=== PATIENT | male | born 1945 | race Caucasian/White ===

== ENCOUNTER 2017-03-22 01:49 | Emergency (ER) | payer OTHER ==
[~2017-03-22] VITALS: Ht 160 cm; Wt 63.3 kg
[~2017-03-22 01:49] MED LIST: ACET325T33 PO; ASPI325T32 PO; CAPS60CR2 TOP; INSU100I13 SC; INSU100V18 SC; LOSA50TA6 PO; NAPR-688 PO; PANT40TA4 PO; PENT400T2 PO; POTA20TA8 PO; TERA1CAP36 PO; ZOLP10TA PO
[2017-03-22 01:52] VITALS: Ht 160 cm; Wt 63.3 kg
[2017-03-22] MEDS ORDERED: SOD CHLORIDE 0.9% 500 ML IV STA (01:57)
[2017-03-22 02:20] LABS: BASOPHILS % 0.3 % (0.0-2.0); EOSINOPHILS % 0.3 % (0.0-7.0); HEMATOCRIT 37.6 % (42.0-52.0); HEMOGLOBIN 13.3 g/dl (14.0-18.0); LYMPHOCYTES # 0.7 10^3/ul (0.8-2.9); LYMPHOCYTES % 12.3 % (15.0-51.0); MEAN CORPUSCULAR HEMOGLOBIN 33.3 pg (29.0-33.0); MEAN CORPUSCULAR HGB CONC 35.4 g/dl (32.0-37.0); MEAN CORPUSCULAR VOLUME 94.2 fl (82.0-101.0); MONOCYTE # 0.5 10^3/ul (0.3-0.9); MONOCYTES % 8.4 % (0.0-11.0); NEUTROPHIL # 4.6 10^3/ul (1.6-7.5); PLATELET COUNT 127 10^3/UL (140-415); POSITIVE DIFF @See below; RED BLOOD COUNT 3.99 10^6/ul (4.70-6.10); WHITE BLOOD COUNT 5.9 10^3/ul (4.8-10.8)
[2017-03-22 02:34] LABS: INR 0.99; PROTIME 13.1 Sec (12.2-14.2)
[2017-03-22 02:35] LABS: PARTIAL THROMBOPLASTIN TIME 28.8 Sec (25.0-35.0)
[2017-03-22 02:42] LABS: ALBUMIN 3.9 g/dl (3.3-4.9); ALBUMIN/GLOBULIN RATIO 1.11; BILIRUBIN,INDIRECT 0.2 mg/dl (0-1.1); BILIRUBIN,TOTAL 0.2 mg/dl (0.2-1.3); CALCIUM 8.8 mg/dl (8.4-10.2); CREATININE 0.75 mg/dl (0.61-1.24); POTASSIUM 4.3 mmol/L (3.5-5.1); TOTAL PROTEIN 7.4 g/dl (6.1-8.1)
--- NOTE | 2017-03-22 02:43 | RADRPT ---
PROCEDURE: CHEST - 1 VIEW CLINICAL INDICATION: 72-year-old male with chest pain. TECHNIQUE: A single frontal AP upright portable view of the chest was performed. The images were reviewed on a PACS workstation. COMPARISON: Chest x-ray March 11, 2014. FINDINGS: The cardiomediastinal silhouette is within normal limits. The thoracic aortic arch is calcified. T here is no evidence for an infiltrate. There is no evidence for congestive heart failure. There is no evidence for pneumothorax. Surgical clips are seen within the right upper quadrant from prior cho lecystectomy. The osseous structures are intact. IMPRESSION: 1. No evidence for active cardiopulmonary disease. 2. Calcified thoracic aortic arch. 3. Status post cholecystectomy. .Jan Rodriguez MD, MD Date Time Electronically viewed and signed by .Jan Rodriguez MD, on 03/22/2017 02:43 .M/
[2017-03-22 02:54] LABS: TROPONIN-I 0.013 ng/ml (0.00-0.12)
[2017-03-22] MEDS ORDERED: hydrALAzine 20 MG INJ IV ONE (03:00)
--- NOTE | 2017-03-22 03:12 | ERD ---
ER Documentation Chief Complaint Date/Time DATE: 03/22/17 TIME: 03:09 Chief Complaint hypoglycemia HPI 72-year-old male here for hypoglycemia. Patient history of diabetes mellitus. Denies any fevers or chills. Found to have sugar 47 at home. Given D10 in the field. Alert and oriented 4 with no complaints upon arrival to ER. ROS All systems reviewed and are negative except as per history of present illness. Medications Home Meds Active Scripts Acetaminophen* (Tylenol*) 325 Mg Tablet, 2 TAB PO Q8 Y for PAIN, #20 TAB Prov:LUIS DOBSON MD 03/10/16 Reported Medications Pentoxifylline* (Pentoxifylline*) 400 Mg Tablet.sa, 400 MG PO BID, TAB 03/10/16 Terazosin Hcl* (Terazosin Hcl*) 1 Mg Capsule, 1 MG PO QPM, CAP 03/10/16 Pantoprazole* (Pantoprazole*) 40 Mg Tablet.dr, 40 MG PO DAILY, TAB 03/10/16 Insuln Asp Prt/Insulin Aspart (Novolog Mix 70-30 Vial*) 100 Units/Ml Vial, 20 UNIT SC QPM, VIAL 03/10/16 Insuln Asp Prt/Insulin Aspart* (Novolog Mix 70-30 Flexpen*) 100 Units/Ml Pen, 30 UNIT SC AC BREAKFAST, EA 03/10/16 Naproxen* (Naproxen*) 500 Mg Tablet, 500 MG PO BID Y for PAIN, TAB 03/10/16 Losartan Potassium* (Losartan Potassium*) 50 Mg Tablet, 50 MG PO DAILY, TAB 03/10/16 Potassium Chloride* (Klor-Con*) 10 Meq Tabsr, 10 MEQ PO DAILY Y for MUSCLE CRAMPS, TAB.SA 03/10/16 Capsaicin* (Capsaicin*) 0.025%-45GM Cream..g., 1 APPLIC TOP BID, #1 EA 03/10/16 Aspirin* (Aspirin* EC) 325 Mg Tab, 325 MG PO DAILY, TAB 03/10/16 Zolpidem Tartrate* (Ambien*) 10 Mg Tablet, 10 MG PO QHS Y for INSOMNIA, TAB 03/10/16 Allergies Allergies: Coded Allergies: No Known Allergies (Verified Allergy, Mild, 03/19/12) PMhx/Soc History of Surgery: Yes (spine sx) Anesthesia Reaction: No Hx Neurological Disorder: No Hx Respiratory Disorders: No Hx Cardiac Disorders: Yes (HTN) Hx Psychiatric Problems: No Hx Miscellaneous Medical Probl: Yes (DM) Hx Alcohol Use: No Hx Substance Use: No Hx Tobacco Use: No Smoking Status: Never smoker Physical Exam Vitals Vital Signs Date Time Temp Pulse Resp B/P Pulse Ox O2 Delivery O2 Flow Rate FiO2 03/22/17 01:52 96.8 69 14 199/103 100 Physical Exam Const: [] Head: Atraumatic Eyes: Normal Conjunctiva ENT: Normal External Ears, Nose and Mouth. Neck: Full range of motion..~ No meningismus. Resp: Clear to auscultation bilaterally Cardio: Regular rate and rhythm, no murmurs Abd: Soft, non tender, non distended. Normal bowel sounds Skin: No petechiae or rashes Back: No midline or flank tenderness Ext: No cyanosis, or edema Neur: Awake and alert Psych: Normal Mood and Affect Result Diagram: 03/22/17 0200 03/22/17 0200 Results 24 hrs Laboratory Tests Test 03/22/17 02:00 03/22/17 02:01 White Blood Count 5.910^3/ul Red Blood Count 3.9910^6/ul Hemoglobin 13.3g/dl Hematocrit 37.6% Mean Corpuscular Volume 94.2fl Mean Corpuscular Hemoglobin 33.3pg Mean Corpuscular Hemoglobin Concent 35.4g/dl Red Cell Distribution Width 13.0% Platelet Count 01399^3/UL Mean Platelet Volume 10.0fl Neutrophils % 78.0% Lymphocytes % 12.3% Monocytes % 8.4% Eosinophils % 0.3% Basophils % 0.3% Nucleated Red Blood Cells % 0.0/100WBC Neutrophils # 4.610^3/ul Lymphocytes # 0.710^3/ul Monocytes # 0.510^3/ul Eosinophils # 0.010^3/ul Basophils # 0.010^3/ul Nucleated Red Blood Cells # 0.010^3/ul Prothrombin Time 13.1Sec Prothrombin Time Ratio 1.0 INR International Normalized Ratio 0.99 Activated Partial Thromboplast Time 28.8Sec Sodium Level 144mmol/L Potassium Level 4.3mmol/L Chloride Level 102mmol/L Carbon Dioxide Level 26mmol/L Anion Gap 20 Blood Urea Nitrogen 16mg/dl Creatinine 0.75mg/dl Glucose Level 159mg/dl Calcium Level 8.8mg/dl Total Bilirubin 0.2mg/dl Direct Bilirubin 0.00mg/dl Indirect Bilirubin 0.2mg/dl Aspartate Amino Transf (AST/SGOT) 149IU/L Alanine Aminotransferase (ALT/SGPT) 182IU/L Alkaline Phosphatase 66IU/L Troponin I 0.013ng/ml B-Type Natriuretic Peptide 320PG/ML Total Protein 7.4g/dl Albumin 3.9g/dl Globulin 3.50g/dl Albumin/Globulin Ratio 1.11 Bedside Glucose 161mg/dL Current Medications Medications (Trade) Dose Ordered Sig/Smiley Route PRN Reason Start Time Stop Time Status Last Admin Dose Admin Sodium Chloride (NS) 500 ml @ 500 mls/hr Q1H STAT IV 03/22/17 01:57 03/22/17 02:56 DC 03/22/17 02:14 Hydralazine HCl (Apresoline) 20 mg ONCE ONCE IV 03/22/17 03:00 03/22/17 03:01 DC 03/22/17 03:05 Procedures/MDM EKG: Rate/Rhythm: Normal Sinus Rhythm QRS, ST, T-waves: No changes consistent w/ acute ischemia Impression: No evidence of ischemia or arrhythmia Chest X-ray 1V Interpreted by me: Soft Tissue: No acute abnormalities Bones: No acute abnormalities Mediastinum/Cardiac Silhouette/Lungs: No acute abnormalities Patient's blood pressure was elevated (>120/80) but appears stable without evidence of hypertension emergency or urgency. The patient was counseled about the risks of hypertension and urged to pursue outpatient monitoring and therapy within a week with their primary care physician. Patient's hypoglycemia has resolved. At this point clinically stable. Will be discharged home Departure Diagnosis: Primary Impression: Hypoglycemia Additional Impression: Accelerated hypertension Condition: Stable SHANTHI LYNN Mar 22, 2017 03:12
[2017-03-22 03:28] VITALS: BP 137/77; PULSE 72; RESP 18; TEMP 98.6
== END 2017-03-22 03:32 | disposition home or self-care (01) ==
LOC: E/R 01:49
DX: E11.649 Type 2 diabetes mellitus with hypoglycemia without coma (principal); I10 Essential (primary) hypertension; R07.9 Chest pain, unspecified; Z79.4 Long term (current) use of insulin; Z79.82 Long term (current) use of aspirin
CPT/HCPCS: 36415; 71010; 80053; 82962; 83880; 84484; 85025; 85610; 85730; 93005; 96374; 99285; J0360; J7040

== ENCOUNTER 2017-04-12 04:54 | Inpatient (IN) | payer OTHER ==
[~2017-04-12] VITALS: Ht 160 cm; Wt 58.0 kg
[2017-04-12 04:57] VITALS: Ht 160 cm; Wt 58.0 kg
[2017-04-12] MEDS ORDERED: hydrALAzine 20 MG INJ IV ONE (05:30)
--- NOTE | 2017-04-12 05:40 | RADRPT ---
PROCEDURE: XR Chest. CLINICAL INDICATION: Altered mental status. Pulmonary process not otherwise specified. TECHNIQUE: Portable single view of the chest COMPARISON: 03/22/2017 FINDINGS: The heart size remains within normal limits. The aorta is slightly ectatic and calcified. No acute infiltrate, pleural effusion, or overt congestive heart failure is seen. No bony abnormality is se en. IMPRESSION: Atherosclerotic aorta. No definite acute pulmonary disease. RPTAT: HLBE Monique Simmons Physician Date Time Electronically viewed and signed by Monique Simmons, Physician on 04/12/2017 05:39 LE/
[2017-04-12 06:06] LABS: BASOPHILS % 0.5 % (0.0-2.0); EOSINOPHILS # 0.1 10^3/ul (0.0-0.5); EOSINOPHILS % 1.2 % (0.0-7.0); HEMATOCRIT 39.3 % (42.0-52.0); HEMOGLOBIN 13.4 g/dl (14.0-18.0); LYMPHOCYTES # 1.6 10^3/ul (0.8-2.9); LYMPHOCYTES % 26.8 % (15.0-51.0); MEAN CORPUSCULAR HEMOGLOBIN 32.1 pg (29.0-33.0); MEAN CORPUSCULAR HGB CONC 34.1 g/dl (32.0-37.0); MEAN CORPUSCULAR VOLUME 94.2 fl (82.0-101.0); MEAN PLATELET VOLUME 10.6 fl (7.4-10.4); MONOCYTE # 0.5 10^3/ul (0.3-0.9); MONOCYTES % 8.9 % (0.0-11.0); NEUTROPHILS % 62.4 % (39.0-77.0); PLATELET COUNT 139 10^3/UL (140-415); POSITIVE DIFF @See below; RED BLOOD COUNT 4.17 10^6/ul (4.70-6.10)
--- NOTE | 2017-04-12 06:16 | RADRPT ---
PROCEDURE: CT Brain without. CLINICAL INDICATION: Altered mental status TECHNIQUE: A CT of the brain was performed utilizing axial sections from the skull base through th e vertex without contrast. The scan was reviewed in soft tissue brain and high frequency resolution bone algorithm windows. Images were reviewed on a high-resolution PACS workstation. The exam CTDI = 43.86 mGy, and the DLP = 720.23 mGy-cm. One or more of the following dose reduction techniques we re used: Automated exposure control, adjustment of the mA and / or kV according to patient size, or use of iterative reconstruction technique. COMPARISON: Head CT dated 03/19/2012 FINDINGS: There is mild prominence of the lateral ventricles and cerebral sulci, consistent with diffuse cereb ral atrophy. There is no intracranial hemorrhage, midline shift, or mass effect. No abnormal extra- axial fluid collections are identified. There is hypoattenuation of the periventricular white matte r. There is focal hypoattenuation within the left thalamus and left norris radiata The mendoza-white di fferentiation is well preserved. The basal cisterns are patent. The posterior fossa is unremarkabl e. Vascular calcifications are noted within the intracranial portions of the vertebral and internal carotid arteries. The visualized portions of the orbits are unremarkable. The paranasal sinuses and mastoid air cells are clear. No calvarial fracture is identified. There is a nonspecific nonaggressive appearing rou nd sclerotic focus along the left superior orbital wall, not significantly changed when compared to the prior examination. The soft tissues are unremarkable. IMPRESSION: 1. No acute intracranial abnormality. No significant interval change. 2. Chronic left thalamic/norris radiata infarct. 3. Age related senescent changes with mild diffuse cerebral atrophy. 4. Patchy periventricular hypoattenuation, nonspecific finding, most commonly associated with micro vascular ischemic changes. 5. Arterial atherosclerosis. RPTAT: HH .Susana Whittington MD, Date Time Electronically viewed and signed by .Susana Whittington MD, on 04/12/2017 06:16 .G/
[2017-04-12 06:39] LABS: ADD UMIC YES; UR ASCORBIC ACID NEGATIVE (NEGATIVE); UR BILIRUBIN (Dip) NEGATIVE (NEGATIVE); UR BLOOD (Dip) NEGATIVE (NEGATIVE); UR CLARITY CLEAR (CLEAR); UR COLOR YELLOW (YELLOW); UR GLUCOSE (Dip) 1+ mg/dL (NEGATIVE); UR KETONES (Dip) NEGATIVE (NEGATIVE); UR LEUKOCYTE ESTERASE (Dip) NEGATIVE Leu/ul (NEGATIVE); UR NITRITE (Dip) NEGATIVE (NEGATIVE); UR RBC 1 /HPF (0-5); UR SPECIFIC GRAVITY (Dip) 1.013 (1.003-1.030); UR TOTAL PROTEIN (Dip) 2+ mg/dl (NEGATIVE); UR UROBILINOGEN (Dip) 1+ mg/dL (NEGATIVE)
[2017-04-12] MEDS ORDERED: DEXTROSE 50% 50 ML SYRINGE IV STA (06:55)
[2017-04-12] MEDS ORDERED: DEXTROSE 50% 50 ML SYRINGE ONE (06:55)
[2017-04-12] MEDS ORDERED: ASPIRIN 325 MG TAB PO ONE (07:00)
[2017-04-12 07:24] LABS: BARBITURATES Negative (NEGATIVE); BENZODIAZEPINES Negative (NEGATIVE); CANNABINOIDS Negative (NEGATIVE); COCAINE Negative (NEGATIVE); OPIATES Negative (NEGATIVE)
[2017-04-12 08:00] VITALS: TEMP 97.9
[2017-04-12 08:01] LABS: ALANINE AMINOTRANSFERASE 200 IU/L (13-69); ALBUMIN 3.6 g/dl (3.3-4.9); ALBUMIN/GLOBULIN RATIO 0.92; ALKALINE PHOSPHATASE 75 IU/L (42-121); ANION GAP 20 (8-16); ASPARTATE AMINO TRANSFERASE 143 IU/L (15-46); BILIRUBIN,INDIRECT 0.3 mg/dl (0-1.1); BILIRUBIN,TOTAL 0.3 mg/dl (0.2-1.3); BLOOD UREA NITROGEN 17 mg/dl (7-20); CALCIUM 8.8 mg/dl (8.4-10.2); CARBON DIOXIDE 25 mmol/L (21-31); CHLORIDE 99 mmol/L (97-110); CREATININE 0.69 mg/dl (0.61-1.24); GLUCOSE 213 mg/dl (70-220); POTASSIUM 4.6 mmol/L (3.5-5.1); SODIUM 139 mmol/L (135-144); TOTAL PROTEIN 7.5 g/dl (6.1-8.1)
--- NOTE | 2017-04-12 08:09 | ERA ---
ER Documentation Chief Complaint Date/Time DATE: 04/12/17 TIME: 08:06 Chief Complaint BIBA RA81, ALOC HPI Patient is a 72-year-old male with hypertension and diabetes who presents with altered mental status. Please note the history and physical exam is limited secondary to the patient's altered mental status. He was brought in by ambulance. He is confused and does not know the year. He has decreased glassblower strength on the right. It is difficult to obtain history otherwise. The patient has had previous visits for hypoglycemia based on review of old medical records. He does not know the name of his primary doctor. ROS All systems reviewed and are negative except as per history of present illness. Medications Home Meds Active Scripts Acetaminophen* (Tylenol*) 325 Mg Tablet, 2 TAB PO Q8 Y for PAIN, #20 TAB Prov:LUIS DOBSON MD 03/10/16 Reported Medications Pentoxifylline* (Pentoxifylline*) 400 Mg Tablet.sa, 400 MG PO BID, TAB 03/10/16 Terazosin Hcl* (Terazosin Hcl*) 1 Mg Capsule, 1 MG PO QPM, CAP 03/10/16 Pantoprazole* (Pantoprazole*) 40 Mg Tablet.dr, 40 MG PO DAILY, TAB 03/10/16 Insuln Asp Prt/Insulin Aspart (Novolog Mix 70-30 Vial*) 100 Units/Ml Vial, 20 UNIT SC QPM, VIAL 03/10/16 Insuln Asp Prt/Insulin Aspart* (Novolog Mix 70-30 Flexpen*) 100 Units/Ml Pen, 30 UNIT SC AC BREAKFAST, EA 03/10/16 Naproxen* (Naproxen*) 500 Mg Tablet, 500 MG PO BID Y for PAIN, TAB 03/10/16 Losartan Potassium* (Losartan Potassium*) 50 Mg Tablet, 50 MG PO DAILY, TAB 03/10/16 Potassium Chloride* (Klor-Con*) 10 Meq Tabsr, 10 MEQ PO DAILY Y for MUSCLE CRAMPS, TAB.SA 03/10/16 Capsaicin* (Capsaicin*) 0.025%-45GM Cream..g., 1 APPLIC TOP BID, #1 EA 03/10/16 Aspirin* (Aspirin* EC) 325 Mg Tab, 325 MG PO DAILY, TAB 03/10/16 Zolpidem Tartrate* (Ambien*) 10 Mg Tablet, 10 MG PO QHS Y for INSOMNIA, TAB 03/10/16 Allergies Allergies: Coded Allergies: No Known Allergies (Verified Allergy, Mild, 03/19/12) PMhx/Soc History of Surgery: Yes (spine sx, R FOOT AMPUTATION) Anesthesia Reaction: No Hx Neurological Disorder: Yes (CVA) Hx Respiratory Disorders: No Hx Cardiac Disorders: Yes (HTN) Hx Psychiatric Problems: No Hx Miscellaneous Medical Probl: Yes (DM) Hx Alcohol Use: No Hx Substance Use: No Hx Tobacco Use: No Smoking Status: Unknown if ever smoked FmHx Family History: No diabetes Physical Exam Vitals Vital Signs Date Time Temp Pulse Resp B/P Pulse Ox O2 Delivery O2 Flow Rate FiO2 04/12/17 06:46 70 16 143/77 99 Nasal Cannula 2.0 04/12/17 06:20 69 16 226/120 99 Nasal Cannula 2.0 04/12/17 05:05 Nasal Cannula 2 04/12/17 05:05 97.6 68 12 231/114 99 Nasal Cannula 2.0 04/12/17 04:57 97.6 73 18 232/106 100 Physical Exam Const: No acute distress Head: Atraumatic Eyes: Normal Conjunctiva ENT: Normal External Ears, Nose and Mouth. Neck: Full range of motion..~ No meningismus. Resp: Clear to auscultation bilaterally Cardio: Regular rate and rhythm, no murmurs Abd: Soft, non tender, non distended. Normal bowel sounds Skin: Pale skin Back: No midline or flank tenderness Ext: No cyanosis, or edema Neur: Awake and alert 2, patient does not know what year it is, there is decreased glassblower strength on the right compared to the left Psych: Normal Mood and Affect Result Diagram: 04/12/17 0535 Results 24 hrs Laboratory Tests Test 04/12/17 05:35 04/12/17 07:00 White Blood Count 6.010^3/ul Red Blood Count 4.1710^6/ul Hemoglobin 13.4g/dl Hematocrit 39.3% Mean Corpuscular Volume 94.2fl Mean Corpuscular Hemoglobin 32.1pg Mean Corpuscular Hemoglobin Concent 34.1g/dl Red Cell Distribution Width 13.0% Platelet Count 01581^3/UL Mean Platelet Volume 10.6fl Neutrophils % 62.4% Lymphocytes % 26.8% Monocytes % 8.9% Eosinophils % 1.2% Basophils % 0.5% Nucleated Red Blood Cells % 0.0/100WBC Neutrophils # (Manual) 410^3/ul Lymphocytes # 1.610^3/ul Monocytes # 0.510^3/ul Eosinophils # 0.110^3/ul Basophils # 0.010^3/ul Nucleated Red Blood Cells # 0.010^3/ul Urine Color YELLOW Urine Clarity CLEAR Urine pH 8.0 Urine Specific [place] 1.013 Urine Ketones NEGATIVEmg/dL Urine Nitrite NEGATIVEmg/dL Urine Bilirubin NEGATIVEmg/dL Urine Urobilinogen 1+mg/dL Urine Leukocyte Esterase NEGATIVELeu/ul Urine Microscopic RBC 1/HPF Urine Microscopic WBC 1/HPF Urine Hemoglobin NEGATIVEmg/dL Urine Glucose 1+mg/dL Urine Total Protein 2+mg/dl Urine Opiates Screen Negative Urine Barbiturates Negative Urine Amphetamines Screen Negative Urine Benzodiazepines Screen Negative Urine Cocaine Screen Negative Urine Cannabinoids Negative Bedside Glucose 71mg/dL Current Medications Medications (Trade) Dose Ordered Sig/Smiley Route PRN Reason Start Time Stop Time Status Last Admin Dose Admin Hydralazine HCl (Apresoline) 10 mg ONCE ONCE IV 04/12/17 05:30 04/12/17 05:31 DC 04/12/17 06:26 Aspirin (Aspirin) 325 mg ONCE ONCE PO 04/12/17 07:00 04/12/17 07:01 DC 04/12/17 07:08 Dextrose (D50w Syringe) 50 ml ONCE STAT IV 04/12/17 06:55 04/12/17 06:56 DC 04/12/17 07:08 Dextrose (D50w Syringe) 50 ml STK-MED ONCE .ROUTE 04/12/17 06:55 04/12/17 06:56 DC Procedures/MDM EKG read by me: Rate/Rhythm: Regular rate and rhythm at a rate of 67 Intervals: Normal Impression: No evidence of ischemia or arrhythmia CT brain shows no acute bleed per radiology. Patient is a 72-year-old male with diabetes and hypertension who presents with confusion and right upper extremity weakness. I am concerned about acute stroke. The onset is unclear and therefore the patient is not a TPA candidate as the risk would outweigh the benefits. The patient had an NIH stroke scale performed and a bedside swallow evaluation done. The patient was given aspirin after he passed a swallow evaluation. The patient is unstable for transfer and will be admitted to the care of the panel team. I spoke with Dr. Silva for admission to a telemetry bed. I doubt meningitis or intracranial bleed. Departure Diagnosis: Primary Impression: Stroke Qualified Code: I63.9 - Cerebrovascular accident (CVA), unspecified mechanism Additional Impressions: Altered level of consciousness Hypoglycemia Condition: LISA Nolasco MD Apr 12, 2017 08:09
[2017-04-12 08:11] LABS: ETHANOL < 10.0 mg/dl
[2017-04-12 08:28] LABS: ACETAMINOPHEN < 10.0 ug/ml (10.0-30.0)
[2017-04-12 08:29] LABS: SALICYLATE < 1.0 mg/dl (5.0-30.0)
[2017-04-12 08:30] LABS: TROPONIN-I < 0.012 ng/ml (0.00-0.12)
[2017-04-12] MEDS ORDERED: ONDANSETRON 4 MG INJ IV PRN ×2 (08:30→16:00)
[2017-04-12] MEDS ORDERED: ACETAMINOPHEN 325 MG TAB PO PRN ×2 (08:30→16:00)
[2017-04-12 15:22] VITALS: BP 159/80; PULSE 76; RESP 16
[2017-04-12 16:00] VITALS: PULSE 78
[2017-04-12] MEDS ORDERED: GLUCOSE GEL 15 GRAM TUBE BUCCAL PRN (16:00)
[2017-04-12] MEDS ORDERED: HYDROCODONE/APAP (5/325) TAB PO PRN (16:00)
[2017-04-12] MEDS ORDERED: GLUCOSE GEL 15 GRAM TUBE PO PRN ×2 (16:00)
[2017-04-12] MEDS ORDERED: GLUCAGON 1 MG INJ IM PRN (16:00)
[2017-04-12] MEDS ORDERED: NACL 0.9% 3 ML SYG IV SCH (16:00)
[2017-04-12] MEDS ORDERED: DEXTROSE 50% 50 ML SYRINGE IV PRN ×2 (16:00)
--- NOTE | 2017-04-12 16:55 | RADRPT ---
PROCEDURE: US Carotids. CLINICAL INDICATION: Syncope. TECHNIQUE: Multiple sonographic of the carotid arteries were obtained utilizing mendoza scale imaging . Color and Doppler imaging was performed. The images were reviewed on a PACS workstation. COMPARISON: No prior studies are available for comparison. FINDINGS: Location Right Left CCA 97 cm/sec 84 cm/sec Prox ICA 50 cm/sec 71 cm/sec Mid ICA 48 cm/sec 75 cm/sec Dist ICA 58 cm/sec 76 cm/sec ECA 66 cm/sec 89 cm/sec ICA/CCA 0.8 0.9 Antegrade flow is seen within the vertebral arteries bilaterally. Mild scattered atherosclerotic marli que is present bilaterally. No hemodynamically significant stenosis or occlusion is identified. IMPRESSION: 1. Mild scattered atherosclerotic plaque without evidence for hemodynamically significant stenosis - validated velocity measurements with angiographic measurements, velocity criteria are extrapolated from diameter data as defined by the Society of Radiologists in Ultrasound Consensus Conference Radi ology 2003; 229;340-346. This study does indirectly reference the measurement of the distal ICA dorian meter as the denominator for stenosis measurement. 2. Antegrade flow seen within the vertebral arteries bilaterally. SRU Consensus Conference Criteria for the Diagnosis of Carotid Artery Stenosis Degree of Stenosis, % ICA PSV, cm/sec Plaque Estimate, % ICA/CCA PSV Ratio Normal <125 None <2.0 <50 <125 <50 <2.0 50 69 125-230 >50 2.0-4.0 >70 but less than near occlusion >230 >50 <4.0 Near occlusion High, low, or undetectable Visible Variable Total occlusion Undetectable Visible, no detectable lumen Not applicable *Cartoid artery stenosis: mendoza-scale and Doppler US diagnosis. Society of Radiologists in Ultrasound Consensus Conference. Radiology 2003; 229: 340-346 RPTAT: JJ .Morris Up MD, MD Date Time Electronically viewed and signed by .Morris Up MD, MD on 04/12/2017 16:54 .A/
--- NOTE | 2017-04-12 17:49 | RADRPT ---
PROCEDURE: US Abdomen (right upper quadrant). CLINICAL INDICATION: Elevated liver function tests. TECHNIQUE: Multiple real-time longitudinal and transverse images of the right upper quadrant of th e abdomen were acquired utilizing a curved array transducer. Images were reviewed on a high-resoluti on PACS workstation. COMPARISON: None FINDINGS: The images are suboptimal due to patient body habitus. The liver is normal in size and normal in echogenicity. There is no focal hepatic lesion. The gallbladder is surgically absent. The pancreas and common bile duct are not visualized due to overlying bowel gas. No free fluid is present. The right kidney measures 10.7 cm. There is mildly diffusely increased echogenicity of the right ki dney. There is no right renal mass or hydronephrosis. There is a nonobstructing calculus in the lo wer right kidney measuring 0.4 cm. IMPRESSION: 1. Limited study due to patient body habitus and overlying bowel gas. 2. Status post cholecystectomy. 3. Pancreas and common bile duct not visualized. 4. Diffusely increased echogenicity of the right kidney which may indicate medical renal disease. 5. Nonobstructing 0.4 cm calculus in the lower right kidney. RPTAT: QQ .Guzman Sandoval MD, MD Date Time Electronically viewed and signed by .Guzman Sandoval MD, on 04/12/2017 17:48 .R/
[2017-04-12 17:52] LABS: CK-MB 3.67 ng/ml (0.0-2.4); TROPONIN-I 0.015 ng/ml (0.00-0.12)
--- NOTE | 2017-04-12 18:08 | HP ---
DATE OF ADMISSION: 04/12/2017 TIME OF EVALUATION: 1545 REASON FOR ADMISSION: Syncopal episode. CONSULTANTS: Neurology. HISTORY OF PRESENT ILLNESS: This is a 72-year-old, male with past medical history of type 2 diabetes mellitus, CAD, dyslipidemia, CVA, osteoporosis, and benign prostatic hypertrophy, who came to the emergency room after the patient had an apparent syncopal episode at home. The patient's described the event as follows. The patient was laying down, and he was noticeably diaphoretic. Hence, the patient's gave him a piece of orange. As per the patient's , this made the sweating worse and the patient lost his consciousness. Hence, the paramedics were called. There was no reported seizure. The patient had a similar episode on March 22, 2017, and the patient was seen in the emergency room at [facility] when he was diagnosed with hypoglycemia being the cause of the symptoms. The patient denied any associated headache. He denied any associated chest pain. The patient was complaining of right upper quadrant pain. In the emergency room, the patient's brain CT scan showed no acute intracranial abnormalities. However, it showed chronic left thalamic/norris radiata infarct. The patient's 12 lead EKG was showing right bundle branch block. The patient's chest x-ray was showing atherosclerotic aorta. In the emergency room, the patient was treated with a single dose of IV hydralazine and a single dose of aspirin. PAST MEDICAL HISTORY: Diabetes mellitus, essential hypertension, CAD, dyslipidemia, stroke, osteoporosis. PAST SURGICAL HISTORY: Back surgery, appendectomy, cholecystectomy, right metatarsal amputation. HOME MEDICATIONS: 1. Pentoxifylline 400 mg p.o. b.i.d. 2. Losartan 50 mg p.o. daily. 3. Terazosin 1 mg p.o. q.p.m. 4. Aspirin 325 mg p.o. daily. 5. Naproxen 500 mg p.o. b.i.d. p.r.n. pain. 6. Ambien 10 mg p.o. at bedtime p.r.n. insomnia. 7. Protonix 40 mg p.o. daily. 8. NovoLog 70/30, 20 units subcutaneously every night. 9. NovoLog 70/30, 30 units subcutaneously before breakfast. ALLERGIES: NO KNOWN DRUG ALLERGIES. SOCIAL HISTORY: The patient lives at home with his family. No history of tobacco, alcohol, or illicit drug use. REVIEW OF SYSTEMS: A 12 point review of systems were made and the review of systems are negative other than what is mentioned in the history of present illness. PHYSICAL EXAMINATION: VITAL SIGNS: Temperature 97.6, pulse 76, respiratory rate 16, blood pressure 159/80, oxygen saturation 98 percent on room air. GENERAL: This is a 72-year-old, elderly male lying in bed, in no apparent distress. HEENT: Normocephalic, atraumatic. EOMs intact. Sclerae nonicteric. Clear nasal cavities bilaterally. Mucosa is dry. NECK: Supple. No JVD. No bruits. LUNGS: Bilaterally clear to auscultation. No adventitious breath sounds. No use of accessory muscles of respiration. CARDIAC: Regular rate and rhythm. S1, S2 heard. ABDOMEN: Soft. Bowel sounds hypoactive in all 4 quadrants. Right upper quadrant tenderness. No guarding. GENITOURINARY: Deferred. EXTREMITIES: No cyanosis, no clubbing, no edema. Right metatarsal amputation. Peripheral pulses are palpable. NEUROLOGIC: The patient is awake, alert, and oriented. Right upper extremity and right lower extremity was weaker than the left side. LABORATORY AND DIAGNOSTIC DATA: WBC 6, hemoglobin 13.4, hematocrit 39.3, platelet count 139. Sodium 139, potassium 4.6, chloride 99, carbon dioxide 25, anion gap 20, BUN 7, creatinine 0.6, and glucose 213, calcium 8.8. AST 143, ALT 200, alkaline phosphatase 75. Urine drug toxicology negative. Urinalysis shows urine leukocyte esterase negative, urine nitrite negative, urine glucose 1+. Brain CT scan, no acute intracranial abnormality. Chronic left thalamic/norris radiata infarct. Chest x-ray, no acute cardiopulmonary findings. 12 lead EKG, right bundle branch block. IMPRESSION: This is a 72-year-old male who came to the emergency room after he had a witnessed syncopal episode at home. He will be admitted here for further treatment and evaluation. ASSESSMENT AND PLAN: 1. Syncope. Etiology unclear. The brain CT scan negative for any acute infarct. Brain MRI will be obtained. Neurology consult will be obtained. The patient will be maintained on aspirin. Carotid Doppler study as well as 2D echocardiogram will be obtained. 2. Essential hypertension. The patient will be started on antihypertensives. However, permissive hypertension will be provided because of possible underlying stroke. 3. Type 2 diabetes mellitus. This patient will be maintained on sliding scale insulin. Hemoglobin A1c will be obtained to evaluate the blood glucose control over the past few weeks. 4. History of coronary artery disease. The patient will be ruled out for any underlying acute coronary syndrome. The patient will be continued on his cardiac medications. 5. Dyslipidemia. The patient was not noted to be taking any statins at home. A fasting lipid panel will be obtained. The patient will be maintained on low cholesterol diet. 6. Transaminitis without hyperbilirubinemia. Etiology unclear. Right upper quadrant ultrasound will be obtained to evaluate for any liver pathology since the patient was complaining of right upper quadrant pain. Hepatotoxic drugs will be held at this time. 7. History of cerebrovascular accident. The patient will be continued on aspirin. 8. Benign prostatic hypertrophy. The patient will be continued on Terazosin. The rest of the patient's care will be based on the clinical course. Based on the diagnosis and based on the patient's clinical presentation, he will require at least one midnight's stay for further management in addition to his ischemic presentation. The case and management of this patient was fully discussed with Dr. Salcedo. Dictated By: Juan Rodriguez NP /perfecto/ruth /Document#: [id number] JENISE
[2017-04-12 18:10] LABS: THYROID STIMULATING HORMONE 0.769 MIU/L (0.465-4.680)
[2017-04-12 20:02] VITALS: BP 200/93; PULSE 78; RESP 18
[2017-04-12] MEDS: INSULIN ASPART [NOVOLOG] 3 ML PEN SC SCH ×2 (21:00→21:19)
[2017-04-12] MEDS: FAMOTIDINE 20 MG TAB PO SCH (21:13)
[2017-04-12] MEDS: PENTOXIFYLLINE (SR) 400 MG TAB PO SCH (21:13)
[2017-04-12] MEDS: TERAZOSIN 1 MG CAP PO SCH (21:13)
[2017-04-12 23:27] VITALS: PULSE 76
[2017-04-13] VITALS (13 sets, daily range): BP systolic 102–145; BP diastolic 44–66; PULSE 72–82; RESP 18–20
[2017-04-13] MEDS: ACCU-CHEK XX SCH (02:00)
[2017-04-13] MEDS ORDERED: ACCU-CHEK XX SCH (02:00)
[2017-04-13 08:12] LABS: BASOPHILS % 0.3 % (0.0-2.0); EOSINOPHILS % 0.3 % (0.0-7.0); HEMATOCRIT 37.6 % (42.0-52.0); HEMOGLOBIN 12.9 g/dl (14.0-18.0); LYMPHOCYTES # 1.7 10^3/ul (0.8-2.9); LYMPHOCYTES % 26.4 % (15.0-51.0); MEAN CORPUSCULAR HEMOGLOBIN 32.8 pg (29.0-33.0); MEAN CORPUSCULAR HGB CONC 34.3 g/dl (32.0-37.0); MEAN CORPUSCULAR VOLUME 95.7 fl (82.0-101.0); MEAN PLATELET VOLUME 10.7 fl (7.4-10.4); MONOCYTE # 0.3 10^3/ul (0.3-0.9); MONOCYTES % 5.3 % (0.0-11.0); NEUTROPHILS % 67.5 % (39.0-77.0); PLATELET COUNT 140 10^3/UL (140-415); POSITIVE DIFF @See below; RED BLOOD COUNT 3.93 10^6/ul (4.70-6.10); WHITE BLOOD COUNT 6.4 10^3/ul (4.8-10.8)
[2017-04-13 08:48] LABS: ALBUMIN 3.1 g/dl (3.3-4.9); ALBUMIN/GLOBULIN RATIO 0.88; BILIRUBIN,INDIRECT 0.6 mg/dl (0-1.1); BILIRUBIN,TOTAL 0.6 mg/dl (0.2-1.3); CALCIUM 8.7 mg/dl (8.4-10.2); CREATININE 1.07 mg/dl (0.61-1.24); TOTAL PROTEIN 6.6 g/dl (6.1-8.1)
[2017-04-13 08:50] LABS: CHOL/HDL RATIO 3.8 RATIO; MAGNESIUM 1.7 mg/dl (1.7-2.5); PHOSPHORUS 3.9 mg/dl (2.5-4.9)
[2017-04-13 08:53] LABS: POTASSIUM 5.9 mmol/L (3.5-5.1)
[2017-04-13 08:54] LABS: TROPONIN-I 0.02 ng/ml (0.00-0.12)
[2017-04-13] MEDS: PENTOXIFYLLINE (SR) 400 MG TAB PO SCH ×2 (09:00→21:16)
[2017-04-13] MEDS: LOSARTAN 50 MG TAB PO SCH (09:00)
[2017-04-13 09:09] LABS: CK-MB 2.71 ng/ml (0.0-2.4)
[2017-04-13] MEDS: ASPIRIN 81 MG TAB PO SCH (09:51)
[2017-04-13] MEDS: FAMOTIDINE 20 MG TAB PO SCH ×2 (09:51→21:16)
[2017-04-13] MEDS: PANTOPRAZOLE (EC) 40 MG TAB PO SCH (09:51)
[2017-04-13] MEDS: INSULIN ASPART [NOVOLOG] 3 ML PEN SC SCH ×6 (09:54→21:00)
[2017-04-13] MEDS ORDERED: Discontinue current oral sulfonylureas (glyburide, glipizide, and/or glimepiride) prior to XX ONE (10:00)
[2017-04-13] MEDS: INSULIN GLARGINE [LANtus] 3 ML PEN SC SCH (10:00)
[2017-04-13] MEDS ORDERED: HYPOGLYCEMIA PROTOCOL when Glucose is <70 mg/dL or symptomatic <90 mg/dL. XX ONE (10:00)
--- NOTE | 2017-04-13 10:12 | PN ---
Date/Time of Note Date/Time of Note DATE: 04/13/17 TIME: 10:09 Assessment/Plan VTE Prophylaxis VTE Prophylaxis Intervention: SCD's Lines/Catheters IV [facility]ter Type (from [facility]): [place] Assessment/Plan Chief Complaint/Hosp Course 1. Syncope. Etiology unclear. The brain CT scan negative for any acute infarct. Brain MRI will be obtained. Neurology consult pending. The patient will be maintained on aspirin. Carotid Doppler study negative for any hemodynamically significant stenosis. Pending 2D echocardiogram. 2. Essential hypertension. The patient will be continued on antihypertensives. 3. Type 2 diabetes mellitus. This patient will be maintained on sliding scale insulin. Will add basal insulin and pre-meal insulin. Hemoglobin A1c 8.0. 4. Coronary artery disease. The patient will be continued on his cardiac medications. 5. Dyslipidemia. Fasting lipid panel satisfactory. The patient will be maintained on low cholesterol diet. Will start statins if the LFTs are trending down. 6. Transaminitis without hyperbilirubinemia. Etiology unclear. Right upper quadrant ultrasound showing nonvisualized pancreas and common bile duct. 7. History of cerebrovascular accident. The patient will be continued on aspirin. 8. Benign prostatic hypertrophy. The patient will be continued on Terazosin. 9. Fluids, electrolytes, and nutrition. Carbohydrate controlled, low- cholesterol diet. 10. DVT prophylaxis. Bilateral sequential compression devices. 11. Plan. Await brain MRI. Await neurology evaluation. Await physical therapy evaluation. Case discussed with Dr. Salcedo. Problems: Subjective 24 Hr Interval Summary Free Text/Dictation Patient's blood sugars have been running high. Exam/Review of Systems Vital Signs Vitals Vital Signs Date Time Temp Pulse Resp B/P Pulse Ox O2 Delivery O2 Flow Rate FiO2 04/13/17 08:42 75 04/13/17 08:11 98.0 18 115/44 98 04/12/17 20:02 Room Air 04/12/17 12:00 2.0 Intake and Output 04/12/17 04/12/17 04/13/17 15:00 23:00 07:00 Intake Total 300 ml Output Total 500 ml Balance -200 ml Exam GENERAL: This is a 72-year-old, elderly male lying in bed, in no apparent distress. HEENT: Normocephalic, atraumatic. EOMs intact. Sclerae nonicteric. Clear nasal cavities bilaterally. Mucosa is dry. NECK: Supple. No JVD. No bruits. LUNGS: Bilaterally clear to auscultation. No adventitious breath sounds. No use of accessory muscles of respiration. CARDIAC: Regular rate and rhythm. S1, S2 heard. ABDOMEN: Soft. Bowel sounds hypoactive in all 4 quadrants. GENITOURINARY: Deferred. EXTREMITIES: No cyanosis, no clubbing, no edema. Right metatarsal amputation. Peripheral pulses are palpable. NEUROLOGIC: The patient is awake, alert, and oriented. Right upper extremity and right lower extremity was weaker than the left side. Results Result Diagram: 04/13/1772404/13/1725 Results 24 hrs Laboratory Tests Test 04/12/17 17:01 04/12/17 17:20 04/12/17 21:11 04/13/17 01:49 Hemoglobin A1c 8.0 H Creatine Kinase 281 H Creatine Kinase Index 1.3 Creatinine Kinase MB (Mass) 3.67 H Troponin I 0.015 Thyroid Stimulating Hormone (TSH) 0.769 Free Thyroxine 1.25 Bedside Glucose 160 252 H 238 H Test 04/13/17 07:25 White Blood Count 6.4 Red Blood Count 3.93 L Hemoglobin 12.9 L Hematocrit 37.6 L Mean Corpuscular Volume 95.7 Mean Corpuscular Hemoglobin 32.8 Mean Corpuscular Hemoglobin Concent 34.3 Red Cell Distribution Width 13.0 Platelet Count 140 Mean Platelet Volume 10.7 H Neutrophils % 67.5 Lymphocytes % 26.4 Monocytes % 5.3 Eosinophils % 0.3 Basophils % 0.3 Nucleated Red Blood Cells % 0.0 Neutrophils # (Manual) 4 Lymphocytes # 1.7 Monocytes # 0.3 Eosinophils # 0.0 Basophils # 0.0 Nucleated Red Blood Cells # 0.0 Sodium Level Pending Potassium Level 5.9 H Chloride Level 98 Carbon Dioxide Level 24 Anion Gap Pending Blood Urea Nitrogen 28 #H Creatinine 1.07 Glucose Level 319 H Calcium Level 8.7 Phosphorus Level 3.9 Magnesium Level 1.7 Total Bilirubin 0.6 Direct Bilirubin 0.00 Indirect Bilirubin 0.6 Aspartate Amino Transf (AST/SGOT) 115 H Alanine Aminotransferase (ALT/SGPT) 177 H Alkaline Phosphatase 70 Creatine Kinase 199 Creatine Kinase Index 1.4 Creatinine Kinase MB (Mass) 2.71 H Troponin I 0.020 Total Protein 6.6 Albumin 3.1 L Globulin 3.50 H Albumin/Globulin Ratio 0.88 Triglycerides Level 74 Cholesterol Level 122 LDL Cholesterol, Calculated 75 HDL Cholesterol 32 Cholesterol/HDL Ratio 3.8 Medications Medications Current Medications Ondansetron HCl (Zofran Inj) 4 mg Q6H PRN IV NAUSEA AND/OR VOMITING Last administered on 04/12/17 23:55; Admin Dose 4 MG; Start 04/12/17 at 16:00 Aspirin (Aspirin) 81 mg DAILY PO ; Start 04/13/17 at 09:00 Acetaminophen (Tylenol Tab) 650 mg Q6H PRN PO PAIN LEVEL 1-3 OR FEVER; Start at 16:00 Acetaminophen/ Hydrocodone Bitart ([place] (5/325)) 1 tab Q6H PRN PO PAIN LEVEL 4 -6; Start 04/12/17 at 16:00 Famotidine (Pepcid) 20 mg Q12 PO Last administered on 04/12/17 21:13; Admin Dose 20 MG; Start 04/12/17 at 21:00 Losartan Potassium (Cozaar) 50 mg DAILY PO ; Start 04/13/17 at 09:00 Pantoprazole (Protonix Tab) 40 mg DAILY PO ; Start 04/13/17 at 09:00 Pentoxifylline (Trental) 400 mg BID PO Last administered on 04/12/17 21:13; Admin Dose 400 MG; Start 04/12/17 at 21:00 Terazosin HCl (Hytrin) 1 mg QPM PO Last administered on 04/12/17 21:13; Admin Dose 1 MG; Start 04/12/17 at 21:00 Diagnostic Test (Pha) (Accu-Chek) 1 ea 02 XX ; Start 04/13/17 at 02:00 Miscellaneous Information 1 ea NOTE XX ; Start 04/12/17 at 16:00 Glucose (Glutose) 15 gm Q15M PRN PO DECREASED GLUCOSE; Start 04/12/17 at 16:00 Glucose (Glutose) 22.5 gm Q15M PRN PO DECREASED GLUCOSE; Start 04/12/17 at 16: 00 Dextrose (D50w Syringe) 25 ml Q15M PRN IV DECREASED GLUCOSE; Start 04/12/17 at 16:00 Dextrose (D50w Syringe) 50 ml Q15M PRN IV DECREASED GLUCOSE; Start 04/12/17 at 16:00 Glucagon (Glucagen) 1 mg Q15M PRN IM DECREASED GLUCOSE; Start 04/12/17 at 16:00 Glucose (Glutose) 15 gm Q15M PRN BUCCAL DECREASED GLUCOSE; Start 04/12/17 at 16 :00 Miscellaneous Information (* Miscellaneous Pharmacy Order) Discontinue current oral sulfonylur... ONCE ONCE XX ; Start 04/13/17 at 10:00; Stop 04/13/17 at 10: 01; Status UNV Diagnostic Test (Pha) (Accu-Chek) 1 XX ; Start 04/14/17 at 02:00; Status UNV Insulin Glargine (Lantus) 9 unit DAILY@08 SC ; Start 04/13/17 at 10:00; Status UNV Miscellaneous Information (* Miscellaneous Pharmacy Order) HYPOGLYCEMIA PROTOCOL w... ONCE ONCE XX ; Start 04/13/17 at 10:00; Stop 04/13/17 at 10:01; Status UNV Miscellaneous Information (* Miscellaneous Pharmacy Order) Discontinue all previ... ONCE ONCE XX ; Start 04/13/17 at 10:00; Stop 04/13/17 at 10:01; Status UNV RAMON MOSQUEDA NP Apr 13, 2017 10:12 RAMON MOSQUEDA NP Apr 13, 2017 10:12
--- NOTE | 2017-04-13 12:06 | CONS ---
Date/Time of Note Date/Time of Note DATE: 04/13/17 TIME: 11:59 Assessment/Plan Assessment/Plan Chief Complaint/Hosp Course 72 yo male with hx of DM, HLD, CAD, CVA with residual right sided weakness admitted w syncopal event in the setting of reported hypoglycemia. Recommendations: check orthostatics carotid duplex negative for stenosis MRI Brain w/o contrast pending ECHO continue aspirin maintain normal glucose, afebrile, normotensive BP <140/90 optimize diabetes goal HBA1C< 7.0% or secondary stroke prevention LDL 75, goal less than 70 PT/OT evaluation DVT ppx Problems: Consultation Date/Type/Reason Admit Date/Time Apr 12, 2017 at 08:06 Date of Consultation: Apr 13, 2017 Type of Consultation: Neurology Reason for Consultation syncope found on floor Referring Provider: RAMON MOSQUEDA NP Hx of Present Illness 72 year old male with hx of Type 2 DM, CAD, HLD, CVA, osteoperosis, BPH found patient at home last night laying down diaphoretic. He was reportedly dx with hypoglycemia brought to [facility] for further work up. No seizure activity reported no hx of similar events CTH showed chronic left thalamic and norris radiata infarction he has residual right hand and rle weakness from prior CVA. no complaints Social History Smoking Status: Unknown if ever smoked Exam/Review of Systems Vital Signs Vitals Vital Signs Date Time Temp Pulse Resp B/P Pulse Ox O2 Delivery O2 Flow Rate FiO2 04/13/17 11:45 98.0 81 18 117/58 99 04/12/17 20:02 Room Air 04/12/17 12:00 2.0 Intake and Output 04/12/17 04/12/17 04/13/17 15:00 23:00 07:00 Intake Total 300 ml Output Total 500 ml Balance -200 ml Exam awake and alert very thin appearing M NAD oriented to self, hospital, not to date CN: BRIAN, VFF EOMI right facial weakness on smile palate upgoing uvula midline scm/trap intact Motor: right UE 5-/5 proximal distal hand weakness 3/5, RLE 4/5 weakness left arm and leg 5/5 Coordination difficult to perform on right, left intact Sensory intact throughout Reflexes brisk throughout right toe upgoing Results Result Diagram: 04/13/17 0725 04/13/17 0725 Results 24 hrs Laboratory Tests Test 04/12/17:01 04/12/17 17:20 04/12/17 21:11 04/13/17 01:49 Hemoglobin A1c 8.0 H Creatine Kinase 281 H Creatine Kinase Index 1.3 Creatinine Kinase MB (Mass) 3.67 H Troponin I 0.015 Thyroid Stimulating Hormone (TSH) 0.769 Free Thyroxine 1.25 Bedside Glucose 160 252 H 238 H Test 04/13/17 07:25 White Blood Count 6.4 Red Blood Count 3.93 L Hemoglobin 12.9 L Hematocrit 37.6 L Mean Corpuscular Volume 95.7 Mean Corpuscular Hemoglobin 32.8 Mean Corpuscular Hemoglobin Concent 34.3 Red Cell Distribution Width 13.0 Platelet Count 140 Mean Platelet Volume 10.7 H Neutrophils % 67.5 Lymphocytes % 26.4 Monocytes % 5.3 Eosinophils % 0.3 Basophils % 0.3 Nucleated Red Blood Cells % 0.0 Neutrophils # (Manual) 4 Lymphocytes # 1.7 Monocytes # 0.3 Eosinophils # 0.0 Basophils # 0.0 Nucleated Red Blood Cells # 0.0 Sodium Level 135 Potassium Level 5.9 H Chloride Level 98 Carbon Dioxide Level 24 Anion Gap 19 H Blood Urea Nitrogen 28 #H Creatinine 1.07 Glucose Level 319 H Calcium Level 8.7 Phosphorus Level 3.9 Magnesium Level 1.7 Total Bilirubin 0.6 Direct Bilirubin 0.00 Indirect Bilirubin 0.6 Aspartate Amino Transf (AST/SGOT) 115 H Alanine Aminotransferase (ALT/SGPT) 177 H Alkaline Phosphatase 70 Creatine Kinase 199 Creatine Kinase Index 1.4 Creatinine Kinase MB (Mass) 2.71 H Troponin I 0.020 Total Protein 6.6 Albumin 3.1 L Globulin 3.50 H Albumin/Globulin Ratio 0.88 Triglycerides Level 74 Cholesterol Level 122 LDL Cholesterol, Calculated 75 HDL Cholesterol 32 Cholesterol/HDL Ratio 3.8 Medications Medications Current Medications Ondansetron HCl (Zofran Inj) 4 mg Q6H PRN IV NAUSEA AND/OR VOMITING Last administered on 04/12/17 23:55; Admin Dose 4 MG; Start 04/12/17 at 16:00 Aspirin (Aspirin) 81 mg DAILY PO Last administered on 04/13/17 09:51; Admin Dose 81 MG; Start 04/13/17 at 09:00 Acetaminophen (Tylenol Tab) 650 mg Q6H PRN PO PAIN LEVEL 1-3 OR FEVER; Start at 16:00 Acetaminophen/ Hydrocodone Bitart ([place] (5/325)) 1 tab Q6H PRN PO PAIN LEVEL 4 -6; Start 04/12/17 at 16:00 Famotidine (Pepcid) 20 mg Q12 PO Last administered on 04/13/17 09:51; Admin Dose 20 MG; Start 04/12/17 at 21:00 Losartan Potassium (Cozaar) 50 mg DAILY PO ; Start 04/13/17 at 09:00 Pantoprazole (Protonix Tab) 40 mg DAILY PO Last administered on 04/13/17 09:51 ; Admin Dose 40 MG; Start 04/13/17 at 09:00 Pentoxifylline (Trental) 400 mg BID PO Last administered on 04/12/17 21:13; Admin Dose 400 MG; Start 04/12/17 at 21:00 Terazosin HCl (Hytrin) 1 mg QPM PO Last administered on 04/12/17 21:13; Admin Dose 1 MG; Start 04/12/17 at 21:00 Diagnostic Test (Pha) (Accu-Chek) 1 ea 02 XX ; Start 04/13/17 at 02:00 Miscellaneous Information 1 ea NOTE XX ; Start 04/12/17 at 16:00 Glucose (Glutose) 15 gm Q15M PRN PO DECREASED GLUCOSE; Start 04/12/17 at 16:00 Glucose (Glutose) 22.5 gm Q15M PRN PO DECREASED GLUCOSE; Start 04/12/17 at 16: 00 Dextrose (D50w Syringe) 25 ml Q15M PRN IV DECREASED GLUCOSE; Start 04/12/17 at 16:00 Dextrose (D50w Syringe) 50 ml Q15M PRN IV DECREASED GLUCOSE; Start 04/12/17 at 16:00 Glucagon (Glucagen) 1 mg Q15M PRN IM DECREASED GLUCOSE; Start 04/12/17 at 16:00 Glucose (Glutose) 15 gm Q15M PRN BUCCAL DECREASED GLUCOSE; Start 04/12/17 at 16 :00 Diagnostic Test (Pha) (Accu-Chek) 1 ea 02 XX ; Start 04/14/17 at 02:00 Insulin Glargine (Lantus) 9 unit DAILY@08 SC ; Start 04/13/17 at 10:00 ABHILASH WADDELL MD Apr 13, 2017 12:05
--- NOTE | 2017-04-13 12:26 | RADRPT ---
Echocardiogram Report Patient Name: LAURA SERRATO Gender: Male Date: 1945 Study Date: 13-Apr-2017 Pony Roll Finisher: [email or web address] Location: [id number] Ref. Physician: RAMON MOSQUEDA Quality: Technically Difficult Study Procedures: Transthoracic echocardiogram with complete 2D, M-Mode, and doppler examination. Indications: Evaluate Left Ventricular function. 2D/M Mode Doppler Measurement Value Normal Ranges Measurement Value Normal Ranges LVIDd 2D 2.8 3.5 - 5.6 cm JIM Vmax 1.4 cm2 LVIDs 2D 1.6 2.1 - 4.1 cm AV Peak Markell 1.8 m/sec FS 2D 42.5 % AV Peak PG 13.0 mmHg LVPWd 2D 0.8 0.6 - 1.1 cm LVOT Peak [place]ell 1.1 m/sec IVSd 2D 0.7 0.6 - 1.1 cm LVOT Peak PG 5.0 mmHg IVS/LVPW 2D 0.9 MV E Peak Markell 0.6 m/sec AoR Diam 2D 2.3 2.0 - 3.7 cm MV A Peak Markell 0.9 m/sec LA/Ao 2D 1 0 - 1 MV E/A 0.7 EDV 2D 23.1 cm3 MV Decel Time 151 msec ESV 2D 4.4 cm3 MV E/A 0.7 LA Dimen 2D 2.1 2.3 - 4.0 cm TR Peak Markell 1.4 m/sec LVOT Diam 1.7 cm TR Peak PG 8.0 mmHg LVOT Area 2.3 cm2 RVSP 18.0 mmHg Findings Left Ventricle: Normal left ventricular systolic function. Normal left ventricular cavity size. Moderate concentric left ventricular hypertrophy. Ejection fraction is visually estimated at 65 %. Right Ventricle: Normal right ventricular size. Normal right ventricular systolic function. Left Atrium: There is mild enlargement of left atrium. Right Atrium: The right atrium is normal in size. Mitral Valve: Mitral valve leaflets appear mildly thickened. Mild mitral annular calcification. Mild mitral valve regurgitation. Aortic Valve: Aortic sclerosis without stenosis. Aortic cusps appear mildly calcified. Tricuspid Valve: Tricuspid valve not well visualized. Estimated peak PA systolic pressure 18 mmHg. There is trace tricuspid regurgitation. Pulmonic Valve: Normal pulmonic valve appearance. Pericardium: Normal pericardium with no significant pericardial effusion. Aorta: Normal aortic root. IVC: Normal size and normal respiratory collapse consistent with normal right atrial pressure. Conclusions Normal left ventricular systolic function. Normal left ventricular cavity size. Moderate concentric left ventricular hypertrophy. Ejection fraction is visually estimated at 65 %. Aortic sclerosis without stenosis. Estimated peak PA systolic pressure 18 mmHg based on RA pressure of 3 mmHg. Electronically Signed By: Sharif Ramirez 13-Apr-2017 12:26:18 -0700 Patient Name: LAURA SERRATO Study Date: 13-Apr-2017 [id number]
[2017-04-13] MEDS: TERAZOSIN 1 MG CAP PO SCH (21:16)
[2017-04-14] VITALS (10 sets, daily range): BP systolic 122–146; BP diastolic 60–73; PULSE 71–79; RESP 16–18
[2017-04-14] MEDS: ACCU-CHEK XX SCH ×2 (02:00)
[2017-04-14 07:35] LABS: BASOPHILS % 0.5 % (0.0-2.0); EOSINOPHILS # 0.1 10^3/ul (0.0-0.5); EOSINOPHILS % 1.8 % (0.0-7.0); HEMATOCRIT 35.6 % (42.0-52.0); HEMOGLOBIN 12.6 g/dl (14.0-18.0); LYMPHOCYTES # 2.1 10^3/ul (0.8-2.9); LYMPHOCYTES % 38.2 % (15.0-51.0); MEAN CORPUSCULAR HEMOGLOBIN 33.2 pg (29.0-33.0); MEAN CORPUSCULAR HGB CONC 35.4 g/dl (32.0-37.0); MEAN CORPUSCULAR VOLUME 93.7 fl (82.0-101.0); MEAN PLATELET VOLUME 10.8 fl (7.4-10.4); MONOCYTE # 0.4 10^3/ul (0.3-0.9); MONOCYTES % 7.4 % (0.0-11.0); NEUTROPHILS % 51.7 % (39.0-77.0); PLATELET COUNT 137 10^3/UL (140-415); RED CELL DISTRIBUTION WIDTH 12.8 % (11.5-14.5); WHITE BLOOD COUNT 5.6 10^3/ul (4.8-10.8)
[2017-04-14 08:16] LABS: MAGNESIUM 1.6 mg/dl (1.7-2.5); PHOSPHORUS 3.8 mg/dl (2.5-4.9)
[2017-04-14 08:21] LABS: ALBUMIN 3.2 g/dl (3.3-4.9); ALBUMIN/GLOBULIN RATIO 0.94; BILIRUBIN,INDIRECT 0.4 mg/dl (0-1.1); BILIRUBIN,TOTAL 0.4 mg/dl (0.2-1.3); CALCIUM 8.7 mg/dl (8.4-10.2); CREATININE 0.98 mg/dl (0.61-1.24); TOTAL PROTEIN 6.6 g/dl (6.1-8.1)
[2017-04-14] MEDS: INSULIN GLARGINE [LANtus] 3 ML PEN SC SCH (08:45)
[2017-04-14] MEDS: INSULIN ASPART [NOVOLOG] 3 ML PEN SC SCH ×7 (08:46→20:53)
[2017-04-14] MEDS: ASPIRIN 81 MG TAB PO SCH (08:58)
[2017-04-14] MEDS: LOSARTAN 50 MG TAB PO SCH (08:59)
[2017-04-14] MEDS: FAMOTIDINE 20 MG TAB PO SCH ×2 (08:59→20:43)
[2017-04-14] MEDS: PENTOXIFYLLINE (SR) 400 MG TAB PO SCH ×2 (08:59→20:43)
[2017-04-14] MEDS: PANTOPRAZOLE (EC) 40 MG TAB PO SCH (08:59)
--- NOTE | 2017-04-14 10:22 | PN ---
Date/Time of Note Date/Time of Note DATE: 04/14/17 TIME: 10:20 Assessment/Plan VTE Prophylaxis VTE Prophylaxis Intervention: SCD's Lines/Catheters IV Catheter Type (from [email or web address] [place] Assessment/Plan Chief Complaint/Hosp Course 1. Syncope. Etiology unclear. The brain CT scan negative for any acute infarct. Brain MRI pending. S/P neurology evaluation. The patient will be maintained on aspirin. Carotid Doppler study negative for any hemodynamically significant stenosis. 2D echocardiogram showing preserved LVEF. 2. Essential hypertension. The patient will be continued on antihypertensives. 3. Type 2 diabetes mellitus. This patient will be maintained on sliding scale insulin. Hemoglobin A1c 8.0. Will adjust the insulin dosing to obtain optimal blood sugar control. 4. Coronary artery disease. The patient will be continued on his cardiac medications. 5. Dyslipidemia. Fasting lipid panel satisfactory. The patient will be maintained on low cholesterol diet. Will start statins if the LFTs are trending down. 6. Transaminitis without hyperbilirubinemia. Etiology unclear. Right upper quadrant ultrasound showing nonvisualized pancreas and common bile duct. 7. History of cerebrovascular accident. The patient will be continued on aspirin. 8. Benign prostatic hypertrophy. The patient will be continued on Terazosin. 9. Fluids, electrolytes, and nutrition. Carbohydrate controlled, low- cholesterol diet. 10. DVT prophylaxis. Bilateral sequential compression devices. 11. Plan. Await brain MRI. S/P physical therapy evaluation. Discharge recommendations by PT pending. Case discussed with Dr. Salcedo. Problems: Subjective 24 Hr Interval Summary Free Text/Dictation Denies any complaints. Exam/Review of Systems Vital Signs Vitals Vital Signs Date Time Temp Pulse Resp B/P Pulse Ox O2 Delivery O2 Flow Rate FiO2 04/14/17 08:23 73 04/14/17 07:54 98.0 18 122/60 97 04/12/17 20:02 Room Air 04/12/17 12:00 2.0 Intake and Output 04/13/17 04/13/17 04/14/17 15:00 23:00 07:00 Intake Total 450 ml Output Total 650 ml Balance -200 ml Exam GENERAL: This is a 72-year-old, elderly male lying in bed, in no apparent distress. HEENT: Normocephalic, atraumatic. EOMs intact. Sclerae nonicteric. Clear nasal cavities bilaterally. Mucosa is dry. NECK: Supple. No JVD. No bruits. LUNGS: Bilaterally clear to auscultation. No adventitious breath sounds. No use of accessory muscles of respiration. CARDIAC: Regular rate and rhythm. S1, S2 heard. ABDOMEN: Soft. Bowel sounds hypoactive in all 4 quadrants. GENITOURINARY: Deferred. EXTREMITIES: No cyanosis, no clubbing, no edema. Right metatarsal amputation. Peripheral pulses are palpable. NEUROLOGIC: The patient is awake, alert, and oriented. Right upper extremity and right lower extremity was weaker than the left side. Results Result Diagram: 04/14/17 0650 04/14/17 0650 Results 24 hrs Laboratory Tests Test 04/13/17 12:33 04/13/17 17:13 04/13/17 21:17 04/14/17 06:50 Bedside Glucose 330 H 298 H 165 White Blood Count 5.6 Red Blood Count 3.80 L Hemoglobin 12.6 L Hematocrit 35.6 L Mean Corpuscular Volume 93.7 Mean Corpuscular Hemoglobin 33.2 H Mean Corpuscular Hemoglobin Concent 35.4 Red Cell Distribution Width 12.8 Platelet Count 137 L Mean Platelet Volume 10.8 H Neutrophils % 51.7 Lymphocytes % 38.2 Monocytes % 7.4 Eosinophils % 1.8 Basophils % 0.5 Nucleated Red Blood Cells % 0.0 Neutrophils # (Manual) 2.9 Lymphocytes # 2.1 Monocytes # 0.4 Eosinophils # 0.1 Basophils # 0.0 Nucleated Red Blood Cells # 0.0 Sodium Level 137 Potassium Level 5.0 Chloride Level 99 Carbon Dioxide Level 25 Anion Gap 18 H Blood Urea Nitrogen 32 H Creatinine 0.98 Glucose Level 287 H Calcium Level 8.7 Phosphorus Level 3.8 Magnesium Level 1.6 L Total Bilirubin 0.4 Direct Bilirubin 0.00 Indirect Bilirubin 0.4 Aspartate Amino Transf (AST/SGOT) 101 H Alanine Aminotransferase (ALT/SGPT) 160 H Alkaline Phosphatase 62 Total Protein 6.6 Albumin 3.2 L Globulin 3.40 H Albumin/Globulin Ratio 0.94 Test 04/14/17 08:39 Bedside Glucose 238 H Medications Medications Current Medications Ondansetron HCl (Zofran Inj) 4 mg Q6H PRN IV NAUSEA AND/OR VOMITING Last administered on 04/12/17t 23:55; Admin Dose 4 MG; Start 04/12/17 at 16:00 Aspirin (Aspirin) 81 mg DAILY PO Last administered on 04/14/17 08:58; Admin Dose 81 MG; Start 04/13/17 at 09:00 Acetaminophen (Tylenol Tab) 650 mg Q6H PRN PO PAIN LEVEL 1-3 OR FEVER; Start at 16:00 Acetaminophen/ Hydrocodone Bitart ([place] (5/325)) 1 tab Q6H PRN PO PAIN LEVEL 4 -6; Start 04/12/17 at 16:00 Famotidine (Pepcid) 20 mg Q12 PO Last administered on 04/14/17 08:59; Admin Dose 20 MG; Start 04/12/17 at 21:00 Losartan Potassium (Cozaar) 50 mg DAILY PO Last administered on 04/14/17 08:59 ; Admin Dose 50 MG; Start 04/13/17 at 09:00 Pantoprazole (Protonix Tab) 40 mg DAILY PO Last administered on 04/14/17 08:59 ; Admin Dose 40 MG; Start 04/13/17 at 09:00 Pentoxifylline (Trental) 400 mg BID PO Last administered on 04/14/17 08:59; Admin Dose 400 MG; Start 04/12/17 at 21:00 Terazosin HCl (Hytrin) 1 mg QPM PO Last administered on 04/13/17 21:16; Admin Dose 1 MG; Start 04/12/17 at 21:00 Diagnostic Test (Pha) (Accu-Chek) 1 ea 02 XX ; Start 04/13/17 at 02:00 Miscellaneous Information 1 ea NOTE XX ; Start 04/12/17 at 16:00 Glucose (Glutose) 15 gm Q15M PRN PO DECREASED GLUCOSE; Start 04/12/17 at 16:00 Glucose (Glutose) 22.5 gm Q15M PRN PO DECREASED GLUCOSE; Start 04/12/17 at 16: 00 Dextrose (D50w Syringe) 25 ml Q15M PRN IV DECREASED GLUCOSE; Start 04/12/17 at 16:00 Dextrose (D50w Syringe) 50 ml Q15M PRN IV DECREASED GLUCOSE; Start 04/12/17 at 16:00 Glucagon (Glucagen) 1 mg Q15M PRN IM DECREASED GLUCOSE; Start 04/12/17 at 16:00 Glucose (Glutose) 15 gm Q15M PRN BUCCAL DECREASED GLUCOSE; Start 04/12/17 at 16 :00 Diagnostic Test (Pha) (Accu-Chek) 1 ea 02 XX ; Start 04/14/17 at 02:00 Insulin Glargine (Lantus) 9 unit DAILY@08 SC Last administered on 04/14/17t 08: 45; Admin Dose 9 UNIT; Start 04/13/17 at 10:00 RAMON MOSQUEDA NP Apr 14, 2017 10:22
[2017-04-14] MEDS: TERAZOSIN 1 MG CAP PO SCH (20:49)
[2017-04-15] VITALS (8 sets, daily range): BP systolic 129–141; BP diastolic 61–70; PULSE 67–76; RESP 16–18
[2017-04-15] MEDS: ACCU-CHEK XX SCH ×2 (02:00)
[2017-04-15 08:00] LABS: BASOPHILS % 0.5 % (0.0-2.0); EOSINOPHILS # 0.1 10^3/ul (0.0-0.5); EOSINOPHILS % 1.5 % (0.0-7.0); HEMATOCRIT 35.7 % (42.0-52.0); HEMOGLOBIN 12.2 g/dl (14.0-18.0); LYMPHOCYTES # 1.9 10^3/ul (0.8-2.9); LYMPHOCYTES % 32.9 % (15.0-51.0); MEAN CORPUSCULAR HEMOGLOBIN 32.1 pg (29.0-33.0); MEAN CORPUSCULAR HGB CONC 34.2 g/dl (32.0-37.0); MEAN CORPUSCULAR VOLUME 93.9 fl (82.0-101.0); MEAN PLATELET VOLUME 11.3 fl (7.4-10.4); MONOCYTE # 0.5 10^3/ul (0.3-0.9); MONOCYTES % 7.8 % (0.0-11.0); NEUTROPHILS % 57.1 % (39.0-77.0); PLATELET COUNT 140 10^3/UL (140-415); POSITIVE DIFF @See below; RED CELL DISTRIBUTION WIDTH 12.9 % (11.5-14.5); WHITE BLOOD COUNT 5.9 10^3/ul (4.8-10.8)
[2017-04-15] MEDS ORDERED: INSULIN GLARGINE [LANtus] 3 ML PEN SC SCH (08:00)
[2017-04-15 08:28] LABS: MAGNESIUM 1.6 mg/dl (1.7-2.5); PHOSPHORUS 4.7 mg/dl (2.5-4.9)
[2017-04-15 08:30] LABS: CALCIUM 8.7 mg/dl (8.4-10.2); POTASSIUM 4.7 mmol/L (3.5-5.1)
[2017-04-15] MEDS: INSULIN ASPART [NOVOLOG] 3 ML PEN SC SCH ×4 (08:31→12:05)
[2017-04-15] MEDS: PANTOPRAZOLE (EC) 40 MG TAB PO SCH (08:32)
[2017-04-15] MEDS: LOSARTAN 50 MG TAB PO SCH (08:32)
[2017-04-15] MEDS: PENTOXIFYLLINE (SR) 400 MG TAB PO SCH (08:32)
[2017-04-15] MEDS: FAMOTIDINE 20 MG TAB PO SCH (08:32)
[2017-04-15] MEDS: ASPIRIN 81 MG TAB PO SCH (08:32)
--- NOTE | 2017-04-15 09:34 | RADRPT ---
PROCEDURE: MR Brain noncontrast. CLINICAL INDICATION: Stroke. TECHNIQUE: Multiplanar multisequence noncontrast MRI of the brain was performed. COMPARISON: Noncontrast CT of the head from April 12, 2017. FINDINGS: The ventricles and sulci are within normal limits. There are few bilateral subcortical T2 hyperintensities suggesting chronic microvascular ischemic c hanges. There are T2 hyperintensities also noted within the arthur suggesting chronic microvascular is chemic changes. There is a chronic left norris radiata/basal ganglia infarction as well as a chronic left basal gang demetris lacunar infarction. There is a cavum septum pellucidum which is a normal variant. The left cere bral peduncle is mildly small in size suggesting Wallerian degeneration. There is a probable right parietal arachnoid cyst measuring 3.4 x 1.9 cm. There is no acute infarction. There is no intracranial hemorrhage or extra-axial fluid collection. There is no mass effect. There is no midline shift. The posterior fossa is unremarkable. The normal intracranial, intravascular flow voids are preserved. The visualized paranasal sinuses are well aerated. The patient is status post right lens surgery. There is no destructive osseous lesion. IMPRESSION: 1. No acute infarction or intracranial hemorrhage. 2. 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 3. Mild to moderate chronic microvascular ischemic changes. 4. Chronic left basal ganglia lacunar infarction. 5. Probable 3.4 x 1.9 cm right parietal arachnoid cyst. Further findings as detailed above. RPTAT: HVF .Larry Dial MD, Date Time Electronically viewed and signed by .Larry Dial MD, MD on 04/15/2017 09:34 .F/
[2017-04-15] MEDS ORDERED: MAGNESIUM OXIDE 400 MG TAB PO STA (13:16)
[2017-04-15] MEDS ORDERED: LOSA50TA6 PO (13:20)
--- NOTE | 2017-04-15 13:21 | PDOCDIS ---
Discharge Instructions CONDITION Patient Condition: Stable HOME CARE INSTRUCTIONS: Special Diet: DIABETIC DIET ACTIVITY: Activity Restrictions: Slowly Increase Activity FOLLOW UP/APPOINTMENTS Follow-up Plan Follow-up with your primary care doctor OTHER ORDERS: Other Orders: Call 911 and go to the nearest ER if you develop lightheadedness, fainted, chest pain, shortness of breath, palpitation, severe pain, bleeding, weakness especially if it is on one side of your body SHANTHI TOLENTINO MD Apr 15, 2017 13:21
== END 2017-04-15 16:30 | disposition home or self-care (01) | DRG 312 ==
LOC: E/R 04:54 → MS3 08:06 → MS4 23:25
PROVIDERS: ADMIT Internal Medicine Pulmonary Disease; ATTEND Internal Medicine Pulmonary Disease
DX: R55 Syncope and collapse (principal); E11.65 Type 2 diabetes mellitus with hyperglycemia; E11.9 Type 2 diabetes mellitus without complications; E83.42 Hypomagnesemia; E78.5 Hyperlipidemia, unspecified; I10 Essential (primary) hypertension; I25.10 Atherosclerotic heart disease of native coronary artery without angina pectoris; N40.0 Benign prostatic hyperplasia without lower urinary tract symptoms; R74.0 Nonspecific elevation of levels of transaminase and lactic acid dehydrogenase [LDH]; R41.82 Altered mental status, unspecified; Z79.4 Long term (current) use of insulin; Z79.82 Long term (current) use of aspirin; Z86.73 Personal history of transient ischemic attack (TIA), and cerebral infarction without residual deficits; Z89.431 Acquired absence of right foot
CPT/HCPCS: 36415; 70450; 70551; 71010; 76705; 80048; 80053; 80061; 80306; 80307; 81001; 82550; 82553; 82962; 83036; 83735; 84100; 84439; 84443; 84484; 85025; 93005; 93306; 93880; 96374; 96375; 97116; 97161; 97530; J0360; J1815; J2405

== ENCOUNTER 2017-04-17 07:41 | Emergency (ER) | payer OTHER ==
[~2017-04-17] VITALS: Ht 157.5 cm; Wt 58.0 kg
[2017-04-17 07:50] VITALS: Ht 157.5 cm; Wt 58.0 kg
[2017-04-17] MEDS ORDERED: SOD CHLORIDE 0.9% 500 ML IV STA (07:55)
--- NOTE | 2017-04-17 07:55 | ERD ---
ER Documentation Chief Complaint Date/Time DATE: 04/17/17 TIME: 07:55 Chief Complaint HPI 72-year-old man brought in by EMS from home for momentary confusion and hypoglycemia. I had seen patient's blood sugar was in the 30s. He states he used his insulin and oral antidiabetic medications last night and ate a small meal last night as well. He has had multiple similar episodes in the past. Dextrose was administered at scene and patient's mental status improved rapidly. He has had no recent fevers or chills, no vomiting or diarrhea, no complaints of chest pain or shortness of breath. ROS All systems reviewed and are negative except as per history of present illness. Medications Home Meds Active Scripts Losartan Potassium* (Losartan Potassium*) 50 Mg Tablet, 100 MG PO DAILY, #30 TAB 1 Refill Prov:SHANTHI TOLENTINO MD 04/15/17 Acetaminophen* (Tylenol*) 325 Mg Tablet, 2 TAB PO Q8 Y for PAIN, #20 TAB Prov:LUIS DOBSON MD 03/10/16 Reported Medications Pentoxifylline* (Pentoxifylline*) 400 Mg Tablet.sa, 400 MG PO BID, TAB 03/10/16 Terazosin Hcl* (Terazosin Hcl*) 1 Mg Capsule, 1 MG PO QPM, CAP 03/10/16 Pantoprazole* (Pantoprazole*) 40 Mg Tablet.dr, 40 MG PO DAILY, TAB 03/10/16 Insuln Asp Prt/Insulin Aspart (Novolog Mix 70-30 Vial*) 100 Units/Ml Vial, 20 UNIT SC QPM, VIAL 03/10/16 Insuln Asp Prt/Insulin Aspart* (Novolog Mix 70-30 Flexpen*) 100 Units/Ml Pen, 30 UNIT SC AC BREAKFAST, EA 03/10/16 Naproxen* (Naproxen*) 500 Mg Tablet, 500 MG PO BID Y for PAIN, TAB 03/10/16 Potassium Chloride* (Klor-Con*) 10 Meq Tabsr, 10 MEQ PO DAILY Y for MUSCLE CRAMPS, TAB.SA 03/10/16 Capsaicin* (Capsaicin*) 0.025%-45GM Cream..g., 1 APPLIC TOP BID, #1 EA 03/10/16 Aspirin* (Aspirin* EC) 325 Mg Tab, 325 MG PO DAILY, TAB 03/10/16 Zolpidem Tartrate* (Ambien*) 10 Mg Tablet, 10 MG PO QHS Y for INSOMNIA, TAB 03/10/16 Allergies Allergies: Coded Allergies: No Known Allergies (Verified Allergy, Mild, 03/19/12) PMhx/Soc Previous episodes of syncope and hypoglycemia, hypertension, diabetes mellitus, coronary artery disease, dyslipidemia, history of stroke History of Surgery: Yes (spinal surgery, right foot amputation) Anesthesia Reaction: No Hx Neurological Disorder: Yes (stroke) Hx Respiratory Disorders: No Hx Cardiac Disorders: Yes (heart attack) Hx Psychiatric Problems: No Hx Miscellaneous Medical Probl: Yes (see PT note) Hx Alcohol Use: No Hx Substance Use: No Hx Tobacco Use: No FmHx Family History: No diabetes Physical Exam Vitals Vital Signs Date Time Temp Pulse Resp B/P Pulse Ox O2 Delivery O2 Flow Rate FiO2 04/17/17 07:50 97.6 71 18 191/108 100 Physical Exam GENERAL: Well-developed, well-nourished, well-hydrated, in no apparent distress , looks nontoxic in appearance HEENT: Moist mucous membranes, pink conjunctiva, no cervical spine tenderness or step-off deformities, no goiter, no jaundice or icterus, extraocular movements intact without pain. No submandibular induration, and no pharyngeal erythema NEURO: Alert and oriented 3, cranial nerves II through XII intact bilaterally, pupils equal round reactive to light, no focal deficits or facial asymmetry, sensation intact distally Strength 5/5 in upper and lower extremities bilaterally CARDIAC: Regular rate and rhythm, no murmurs rubs or gallops LUNGS: Clear bilaterally no wheezing crackles or stridor ABDOMEN: Soft nontender, no guarding, no rigidity, no rebound, no psoas sign no obturator sign. Normoactive bowel sounds SKIN: Warm and dry to touch, no abrasions, contusions, or hematomas, no lacerations, no ecchymosis, no target lesions, and without ulcers EXTREMITIES: No clubbing cyanosis or edema, calves are bilaterally symmetrical, no Homans sign, no popliteal cord sign. Distal pulses equal and bilateral PSYCH: Normal affect without agitation or irritability Result Diagram: 04/17/17 0810 04/17/17 0810 Results 24 hrs Laboratory Tests Test 04/17/17 08:10 White Blood Count 5.410^3/ul Red Blood Count 3.9410^6/ul Hemoglobin 13.1g/dl Hematocrit 37.0% Mean Corpuscular Volume 93.9fl Mean Corpuscular Hemoglobin 33.2pg Mean Corpuscular Hemoglobin Concent 35.4g/dl Red Cell Distribution Width 12.8% Platelet Count 35807^3/UL Mean Platelet Volume 10.2fl Neutrophils % 68.9% Lymphocytes % 20.0% Monocytes % 9.8% Eosinophils % 0.7% Basophils % 0.4% Nucleated Red Blood Cells % 0.0/100WBC Neutrophils # (Manual) 3.710^3/ul Lymphocytes # 1.110^3/ul Monocytes # 0.510^3/ul Eosinophils # 0.010^3/ul Basophils # 0.010^3/ul Nucleated Red Blood Cells # 0.010^3/ul Sodium Level 142mmol/L Potassium Level 4.6mmol/L Chloride Level 101mmol/L Carbon Dioxide Level 27mmol/L Anion Gap 19 Blood Urea Nitrogen 30mg/dl Creatinine 1.04mg/dl Glucose Level 165mg/dl Calcium Level 8.4mg/dl Total Bilirubin 0.2mg/dl Direct Bilirubin 0.00mg/dl Indirect Bilirubin 0.2mg/dl Aspartate Amino Transf (AST/SGOT) 133IU/L Alanine Aminotransferase (ALT/SGPT) 204IU/L Alkaline Phosphatase 75IU/L Troponin I 0.075ng/ml Total Protein 7.4g/dl Albumin 3.6g/dl Globulin 3.80g/dl Albumin/Globulin Ratio 0.94 Lipase 75U/L Current Medications Medications (Trade) Dose Ordered Sig/Smiley Route PRN Reason Start Time Stop Time Status Last Admin Dose Admin Sodium Chloride (NS) 500 ml @ 500 mls/hr Q1H STAT IV 04/17/17 07:55 04/17/17 08:54 DC 04/17/17 08:13 Enalaprilat (Vasotec Iv) 1.25 mg ONCE ONCE IV 04/17/17 09:30 04/17/17 09:31 UNV Procedures/MDM IV line was established patient was placed on trim setter helper rhythm strip revealed a sinus rhythm at about 70 bpm with upright P and T waves. Patient was afebrile. Blood sugar was checked and was normal and I administered 500 cc normal saline intravenously. EKG performed, read by me revealed a normal sinus rhythm at 69 bpm, normal axis , with a right ventricular conduction delay and a QRS duration 100 ms, no concerning ST elevations or depressions noted. CBC and electrolytes are normal, liver function tests normal, troponin negative. Patient's diastolic blood pressure went above 100 mmHg and I treated him here with enalapril 1.25 mg IV 1. Blood pressure improved. Patient was fed breakfast here and tolerated his meal without difficulty. Blood sugar was rechecked and remained normal. Differential diagnoses considered, included but not limited to acute coronary syndrome, pulmonary embolism, aortic dissection, abdominal aortic aneurysm, sepsis, stroke, meningitis, encephalitis, pneumonia, appendicitis, cholecystitis , bowel obstruction, pyelonephritis, nephrolithiasis, cystitis, as well as metabolic, hematologic, and electrolyte abnormalities. As well as abscess, cellulitis, fractures, and dislocations. Patient feels much better at this time, and vital signs are normal, symptoms have improved. I did give strict instructions to return to the ED if symptoms continue or worsen, patient will otherwise follow-up with primary care physician. Patient understood instructions and agreed to plan. Disclaimer: Inadvertent spelling and grammatical errors are likely due to EHR/ dictation software use and do not reflect on the overall quality of patient care. Also, please note that the electronic time recorded on this note does not necessarily reflect the actual time of the patient encounter. Departure Diagnosis: Primary Impression: Hypoglycemia Additional Impression: Hypertension Hypertension type: essential hypertension Qualified Code: I10 - Essential hypertension Condition: Good ANTONI CHAHAL MD Apr 17, 2017 07:55
[2017-04-17 08:29] LABS: BASOPHILS % 0.4 % (0.0-2.0); EOSINOPHILS % 0.7 % (0.0-7.0); HEMOGLOBIN 13.1 g/dl (14.0-18.0); LYMPHOCYTES # 1.1 10^3/ul (0.8-2.9); MEAN CORPUSCULAR HEMOGLOBIN 33.2 pg (29.0-33.0); MEAN CORPUSCULAR HGB CONC 35.4 g/dl (32.0-37.0); MEAN CORPUSCULAR VOLUME 93.9 fl (82.0-101.0); MEAN PLATELET VOLUME 10.2 fl (7.4-10.4); MONOCYTE # 0.5 10^3/ul (0.3-0.9); MONOCYTES % 9.8 % (0.0-11.0); NEUTROPHILS % 68.9 % (39.0-77.0); PLATELET COUNT 136 10^3/UL (140-415); POSITIVE DIFF @See below; RED BLOOD COUNT 3.94 10^6/ul (4.70-6.10); RED CELL DISTRIBUTION WIDTH 12.8 % (11.5-14.5); WHITE BLOOD COUNT 5.4 10^3/ul (4.8-10.8)
[2017-04-17 08:46] LABS: ALBUMIN 3.6 g/dl (3.3-4.9); ALBUMIN/GLOBULIN RATIO 0.94; BILIRUBIN,INDIRECT 0.2 mg/dl (0-1.1); BILIRUBIN,TOTAL 0.2 mg/dl (0.2-1.3); CALCIUM 8.4 mg/dl (8.4-10.2); CREATININE 1.04 mg/dl (0.61-1.24); POTASSIUM 4.6 mmol/L (3.5-5.1); TOTAL PROTEIN 7.4 g/dl (6.1-8.1)
[2017-04-17 08:58] LABS: TROPONIN-I 0.075 ng/ml (0.00-0.12)
[2017-04-17] MEDS ORDERED: ENALAPRILAT 1.25 MG INJ IV ONE (09:30)
[2017-04-17 10:33] VITALS: BP 185/78; PULSE 71; RESP 16; TEMP 97.9
== END 2017-04-17 11:00 | disposition home or self-care (01) ==
LOC: E/R 07:41
DX: E11.649 Type 2 diabetes mellitus with hypoglycemia without coma (principal); I10 Essential (primary) hypertension; I25.10 Atherosclerotic heart disease of native coronary artery without angina pectoris; Z79.4 Long term (current) use of insulin; Z79.82 Long term (current) use of aspirin
CPT/HCPCS: 36415; 80053; 82962; 83690; 84484; 85025; 93005; 99284; J7040

== ENCOUNTER 2017-04-25 02:52 | Emergency (ER) | payer OTHER ==
[~2017-04-25] VITALS: Ht 165.1 cm; Wt 62.0 kg
[2017-04-25 03:00] VITALS: Ht 165.1 cm; Wt 62.0 kg
[2017-04-25] MEDS ORDERED: SOD CHLORIDE 0.9% 500 ML IV STA (03:01)
[2017-04-25 04:46] LABS: BASOPHILS % 0.5 % (0.0-2.0); EOSINOPHILS # 0.1 10^3/ul (0.0-0.5); EOSINOPHILS % 1.4 % (0.0-7.0); HEMATOCRIT 37.6 % (42.0-52.0); HEMOGLOBIN 12.9 g/dl (14.0-18.0); LYMPHOCYTES # 1.3 10^3/ul (0.8-2.9); LYMPHOCYTES % 19.5 % (15.0-51.0); MEAN CORPUSCULAR HEMOGLOBIN 32.6 pg (29.0-33.0); MEAN CORPUSCULAR HGB CONC 34.3 g/dl (32.0-37.0); MEAN CORPUSCULAR VOLUME 94.9 fl (82.0-101.0); MONOCYTE # 0.5 10^3/ul (0.3-0.9); MONOCYTES % 7.5 % (0.0-11.0); NEUTROPHILS % 70.6 % (39.0-77.0); PLATELET COUNT 168 10^3/UL (140-415); RED BLOOD COUNT 3.96 10^6/ul (4.70-6.10); RED CELL DISTRIBUTION WIDTH 12.9 % (11.5-14.5); WHITE BLOOD COUNT 6.6 10^3/ul (4.8-10.8)
[2017-04-25 05:02] LABS: ALBUMIN 3.5 g/dl (3.3-4.9); ALBUMIN/GLOBULIN RATIO 0.92; BILIRUBIN,INDIRECT 0.1 mg/dl (0-1.1); BILIRUBIN,TOTAL 0.1 mg/dl (0.2-1.3); CREATININE 0.85 mg/dl (0.61-1.24); POTASSIUM 4.3 mmol/L (3.5-5.1); TOTAL PROTEIN 7.3 g/dl (6.1-8.1)
--- NOTE | 2017-04-25 06:01 | ERD ---
ER Documentation Chief Complaint Date/Time DATE: 04/25/17 TIME: 06:00 Chief Complaint ems called for aloc, accu check "low"; second call in 24hrs for same HPI 72-year-old male was called by EMS his blood sugar monitor read low. He was found to have a sugar of 38. Given D50 in the field. Patient was mildly lethargic initially but has since come around. Sugars have been stable since prior to arrival to the emergency department ROS All systems reviewed and are negative except as per history of present illness. Medications Home Meds Active Scripts Losartan Potassium* (Losartan Potassium*) 50 Mg Tablet, 100 MG PO DAILY, #30 TAB 1 Refill Prov:SHANTHI TOLENTINO MD 04/15/17 Acetaminophen* (Tylenol*) 325 Mg Tablet, 2 TAB PO Q8 Y for PAIN, #20 TAB Prov:LUIS DOBSON MD 03/10/16 Reported Medications Pentoxifylline* (Pentoxifylline*) 400 Mg Tablet.sa, 400 MG PO BID, TAB 03/10/16 Terazosin Hcl* (Terazosin Hcl*) 1 Mg Capsule, 1 MG PO QPM, CAP 03/10/16 Pantoprazole* (Pantoprazole*) 40 Mg Tablet.dr, 40 MG PO DAILY, TAB 03/10/16 Insuln Asp Prt/Insulin Aspart (Novolog Mix 70-30 Vial*) 100 Units/Ml Vial, 20 UNIT SC QPM, VIAL 03/10/16 Insuln Asp Prt/Insulin Aspart* (Novolog Mix 70-30 Flexpen*) 100 Units/Ml Pen, 30 UNIT SC AC BREAKFAST, EA 03/10/16 Naproxen* (Naproxen*) 500 Mg Tablet, 500 MG PO BID Y for PAIN, TAB 03/10/16 Potassium Chloride* (Klor-Con*) 10 Meq Tabsr, 10 MEQ PO DAILY Y for MUSCLE CRAMPS, TAB.SA 03/10/16 Capsaicin* (Capsaicin*) 0.025%-45GM Cream..g., 1 APPLIC TOP BID, #1 EA 03/10/16 Aspirin* (Aspirin* EC) 325 Mg Tab, 325 MG PO DAILY, TAB 03/10/16 Zolpidem Tartrate* (Ambien*) 10 Mg Tablet, 10 MG PO QHS Y for INSOMNIA, TAB 03/10/16 Allergies Allergies: Coded Allergies: No Known Allergies (Unverified Allergy, Mild, 04/25/17) PMhx/Soc History of Surgery: Yes (spinal surgery, right foot amputation, Apendectomy, Uma) Anesthesia Reaction: No Hx Neurological Disorder: Yes (stroke) Hx Respiratory Disorders: No Hx Cardiac Disorders: Yes (heart attack) Hx Psychiatric Problems: No Hx Miscellaneous Medical Probl: Yes (DM, HTN) Hx Alcohol Use: No Hx Substance Use: No Hx Tobacco Use: No Smoking Status: Never smoker Physical Exam Vitals Vital Signs Date Time Temp Pulse Resp B/P Pulse Ox O2 Delivery O2 Flow Rate FiO2 04/25/17 03:00 96.4 88 18 114/108 96 Physical Exam Const: [] Head: Atraumatic Eyes: Normal Conjunctiva ENT: Normal External Ears, Nose and Mouth. Neck: Full range of motion..~ No meningismus. Resp: Clear to auscultation bilaterally Cardio: Regular rate and rhythm, no murmurs Abd: Soft, non tender, non distended. Normal bowel sounds Skin: No petechiae or rashes Back: No midline or flank tenderness Ext: No cyanosis, or edema Neur: Awake and alert Psych: Normal Mood and Affect Result Diagram: 04/25/17 0347 04/25/17 0347 Results 24 hrs Laboratory Tests Test 04/25/17 03:29 04/25/17 03:47 04/25/17 05:42 Bedside Glucose 118mg/dL 141mg/dL White Blood Count 6.610^3/ul Red Blood Count 3.9610^6/ul Hemoglobin 12.9g/dl Hematocrit 37.6% Mean Corpuscular Volume 94.9fl Mean Corpuscular Hemoglobin 32.6pg Mean Corpuscular Hemoglobin Concent 34.3g/dl Red Cell Distribution Width 12.9% Platelet Count 22869^3/UL Mean Platelet Volume 10.0fl Neutrophils % 70.6% Lymphocytes % 19.5% Monocytes % 7.5% Eosinophils % 1.4% Basophils % 0.5% Nucleated Red Blood Cells % 0.0/100WBC Neutrophils # (Manual) 4.710^3/ul Lymphocytes # 1.310^3/ul Monocytes # 0.510^3/ul Eosinophils # 0.110^3/ul Basophils # 0.010^3/ul Nucleated Red Blood Cells # 0.010^3/ul Sodium Level 139mmol/L Potassium Level 4.3mmol/L Chloride Level 101mmol/L Carbon Dioxide Level 29mmol/L Anion Gap 13 Blood Urea Nitrogen 22mg/dl Creatinine 0.85mg/dl Glucose Level 100mg/dl Calcium Level 9.0mg/dl Total Bilirubin 0.1mg/dl Direct Bilirubin 0.00mg/dl Indirect Bilirubin 0.1mg/dl Aspartate Amino Transf (AST/SGOT) 110IU/L Alanine Aminotransferase (ALT/SGPT) 139IU/L Alkaline Phosphatase 74IU/L Total Protein 7.3g/dl Albumin 3.5g/dl Globulin 3.80g/dl Albumin/Globulin Ratio 0.92 Lipase 65U/L Current Medications Medications (Trade) Dose Ordered Sig/Smiley Route PRN Reason Start Time Stop Time Status Last Admin Dose Admin Sodium Chloride (NS) 500 ml @ 500 mls/hr Q1H STAT IV 04/25/17 03:01 04/25/17 04:00 DC 04/25/17 03:56 Procedures/MDM Medical decision-makin-year-old male comes in essentially for hypoglycemia. At this point clinically stable. Patient be discharged home. Departure Diagnosis: Primary Impression: Hypoglycemia Condition: Stable Patient Instructions: Hypoglycemia (Low Blood Sugar) SHANTHI LYNN Apr 25, 2017 06:00
[2017-04-25 06:37] LABS: ADD UMIC YES; UR ASCORBIC ACID NEGATIVE (NEGATIVE); UR BACTERIA FEW /HPF (NONE SEEN); UR BILIRUBIN (Dip) NEGATIVE (NEGATIVE); UR BLOOD (Dip) NEGATIVE (NEGATIVE); UR CLARITY SLIGHTLY CLOUDY (CLEAR); UR COLOR YELLOW (YELLOW); UR GLUCOSE (Dip) 1+ mg/dL (NEGATIVE); UR KETONES (Dip) NEGATIVE (NEGATIVE); UR LEUKOCYTE ESTERASE (Dip) NEGATIVE Leu/ul (NEGATIVE); UR MUCUS MODERATE /HPF (NONE SEEN); UR NITRITE (Dip) POSITIVE (NEGATIVE); UR RBC 0 /HPF (0-5); UR SPECIFIC GRAVITY (Dip) 1.014 (1.003-1.030); UR TOTAL PROTEIN (Dip) 1+ mg/dl (NEGATIVE); UR UROBILINOGEN (Dip) 1+ mg/dL (NEGATIVE)
[2017-04-25 08:10] VITALS: BP 191/94; PULSE 74; RESP 18
== END 2017-04-25 08:17 | disposition home or self-care (01) ==
LOC: E/R 02:52
DX: E11.649 Type 2 diabetes mellitus with hypoglycemia without coma (principal); I10 Essential (primary) hypertension; Z79.4 Long term (current) use of insulin; Z79.82 Long term (current) use of aspirin
CPT/HCPCS: 36415; 80053; 81001; 82962; 83690; 85025; 99284; J7040

== ENCOUNTER 2018-03-07 19:55 | Inpatient (IN) | END 2018-03-14 18:30 | disposition home health service (06) | DRG 871 ==

== ENCOUNTER 2018-03-31 14:31 | Inpatient (IN) | END 2018-04-12 14:00 | disposition hospice, home (50) | DRG 853 ==